=== PATIENT | male | born 1990 | race Caucasian/White ===

== ENCOUNTER 2018-08-06 14:42 | Emergency (ER) | payer SELFPAY ==
[2018-08-06] MEDS ORDERED: AUGMENTIN500TAB PO (15:07)
[2018-08-06] MEDS ORDERED: NAPROSYN500 MG PO (15:07)
[2018-08-06] MEDS ORDERED: BACTRIM DS1 TAB PO (15:07)
[2018-08-06] MEDS ORDERED: DAPSONE25 MG PO (15:32)
[2018-08-06] MEDS ORDERED: CLEOCIN300 MG PO (15:33)
[2018-08-06 16:16] VITALS: BP 154/86
== END 2018-08-06 16:25 | disposition home or self-care (01) | DRG 918 ==
LOC: ED 14:42
DX: T63.301A Toxic effect of unspecified spider venom, accidental (unintentional), initial encounter (principal); L03.115 Cellulitis of right lower limb; B95.1 Streptococcus, group B, as the cause of diseases classified elsewhere; L97.519 Non-pressure chronic ulcer of other part of right foot with unspecified severity; Y92.009 Unspecified place in unspecified non-institutional (private) residence as the place of occurrence of the external cause

== ENCOUNTER 2019-03-13 | Emergency (ER) | payer SELFPAY ==
[~2019-03-13] MED LIST: AUGMENTIN500TAB PO; BACTRIM DS1 TAB PO; CLEOCIN300 MG PO; DAPSONE25 MG PO; NAPROSYN500 MG PO
[2019-03-13] MEDS ORDERED: CYCLOBENZAPR5 MG PO (10:02)
== END 2019-03-13 10:25 | disposition home or self-care (01) | DRG 552 ==
DX: M54.5 Low back pain (principal); F17.210 Nicotine dependence, cigarettes, uncomplicated